=== PATIENT | female | born 1965 | race Two or more races ===

== ENCOUNTER 2023-05-11 09:42 | Emergency (ER) | payer OTHER ==
[~2023-05-11] VITALS: Ht 162.6 cm; Wt 72.0 kg
[2023-05-11 09:43] VITALS: TEMP 97.4
[2023-05-11] MEDS ORDERED: MIRA3350 PO (09:57)
[2023-05-11] MEDS ORDERED: BUSP5TA PO (09:58)
[2023-05-11 10:45] LABS: APPEARANCE, URINE HAZY (CLEAR); BACTERIA, URINE AUTO 1+ (NEGATIVE); BILIRUBIN, URINE AUTO NEGATIVE (NEGATIVE); BLOOD, URINE BLOOD NEGATIVE (NEGATIVE); COLOR, URINE YELLOW (YELLOW); GLUCOSE, URINE (UA) AUTO NEGATIVE (NEGATIVE); KETONE, URINE AUTO NEGATIVE (NEGATIVE); LEUKOCYTE ESTERASE, URINE AUTO 2+ (NEGATIVE); MUCUS, URINE SMALL (NEGATIVE); NITRITE, URINE AUTO NEGATIVE (NEGATIVE); PROTEIN, URINE AUTO NEGATIVE (NEGATIVE); RBC, URINE AUTO 9 /HPF (0-3); SQUAMOUS EPITHELIAL CELL UR AU 0 /HPF (0-6); UROBILINOGEN, URINE AUTO 0.2 mg/dL (0.0-2.0); WBC, URINE AUTO 94 /HPF (0-3)
[2023-05-11 11:39] LABS: BASO # 0.1 10^3/uL (0.0-0.2); EOS # 0.2 10^3/uL (0.0-0.5); EOS % 3.8 % (0.0-3.0); HEMATOCRIT 40.7 % (36.0-47.0); HEMOGLOBIN 13.6 g/dl (12.0-15.5); LYMPH # 2.7 10^3/uL (1.5-5.0); LYMPH % 44.6 % (24.0-44.0); MEAN CORPUSCULAR HEMOGLOBIN 31.5 pg (27.0-33.0); MEAN CORPUSCULAR HGB CONC 33.4 g/dl (32.0-36.5); MEAN CORPUSCULAR VOLUME 94.2 fl (80.0-96.0); MONO # 0.3 10^3/uL (0.0-0.8); MONO % 5.5 % (2.0-8.0); NEUTROPHILS # 2.7 10^3/uL (1.5-8.5); NEUTROPHILS % 44.8 % (36.0-66.0); PLATELET COUNT, AUTOMATED 229 10^3/uL (150-450); RED BLOOD COUNT 4.32 10^6/uL (4.00-5.40); WHITE BLOOD COUNT 6.1 10^3/uL (4.0-10.0)
[2023-05-11 12:02] LABS: LIPASE 29 U/L (12-53)
[2023-05-11 12:04] LABS: ALBUMIN 3.6 G/DL (3.2-5.2); ALKALINE PHOSPHATASE 101 U/L (46-116); ALT/SGPT 15 U/L (7.0-40); AST/SGOT 20 U/L (<34); BILIRUBIN,DIRECT < 0.1 MG/DL (<0.4); BILIRUBIN,TOTAL 0.3 MG/DL (0.3-1.2); TOTAL PROTEIN 7.3 G/DL (5.7-8.2)
[2023-05-11] MEDS ORDERED: ISOVUE-370 76% 100ML VIAL As Ordered ONE (12:09)
[2023-05-11 12:10] LABS: RSV AMPLIFICATION NEGATIVE (NEGATIVE)
[2023-05-11] MEDS ORDERED: ONDANSETRON 4MG 2ML VIAL IV ONE (12:10)
[2023-05-11] MEDS ORDERED: KETOROLAC 30 MG/ML 1ML VIAL IV ONE ×2 (12:10→13:30)
[2023-05-11] MEDS ORDERED: METR-265 PO (13:29)
[2023-05-11] MEDS ORDERED: CIPR-249 PO (13:29)
[2023-05-11 13:58] VITALS: BP 106/65; O2SAT 100
== END 2023-05-11 14:02 | disposition home or self-care (01) ==
LOC: M ED 09:42
DX: K57.33 Diverticulitis of large intestine without perforation or abscess with bleeding (principal); F41.9 Anxiety disorder, unspecified; F17.200 Nicotine dependence, unspecified, uncomplicated; Z79.899 Other long term (current) drug therapy
CPT/HCPCS: 74177; 80047; 80076; 81001; 83605; 83690; 85025; 87631; 96374; 96375; 96376; 99284; J1885; J2405; Q9967

== ENCOUNTER → 2023-09-03 | Outpatient (REF) | payer OTHER ==
[~2023-09-03] MED LIST: BUSP5TA PO; CIPR-249 PO; METR-265 PO; MIRA3350 PO
[2023-09-03 14:19] LABS: BASO # 0.1 10^3/uL (0.0-0.2); EOS # 0.4 10^3/uL (0.0-0.5); EOS % 5.9 % (0.0-3.0); HEMATOCRIT 39.6 % (42.0-52.0); HEMOGLOBIN 12.9 g/dl (13.5-17.5); LYMPH # 2.4 10^3/uL (1.5-5.0); LYMPH % 34.1 % (24.0-44.0); MEAN CORPUSCULAR HGB CONC 32.6 g/dl (32.0-36.5); MEAN CORPUSCULAR VOLUME 98.3 fl (80.0-96.0); MONO # 0.4 10^3/uL (0.0-0.8); MONO % 5.5 % (2.0-8.0); NEUTROPHILS # 3.7 10^3/uL (1.5-8.5); NEUTROPHILS % 52.9 % (36.0-66.0); PLATELET COUNT, AUTOMATED 207 10^3/uL (150-450); RED BLOOD COUNT 4.03 10^6/uL (4.30-6.10); WHITE BLOOD COUNT 7.1 10^3/uL (4.0-10.0)
[2023-09-03 14:31] LABS: ERYTHROCYTE SEDIMENTATION RATE 25 mm/hr (0-20)
[2023-09-03 14:52] LABS: ALBUMIN 3.6 G/DL (3.2-5.2); ALKALINE PHOSPHATASE 104 U/L (46-116); ALT/SGPT 20 U/L (7.0-40); AST/SGOT 13 U/L (<34); BILIRUBIN,TOTAL 0.3 MG/DL (0.3-1.2); BLOOD UREA NITROGEN 13 MG/DL (9-23); CARBON DIOXIDE LEVEL 27 MMOL/L (20-31); CHLORIDE LEVEL 109 MMOL/L (98-107); CHOLESTEROL LEVEL 310 MG/DL (<200); CHOLESTEROL RISK RATIO 6.15 (<5); CREATININE FOR GFR 0.56 MG/DL (0.70-1.30); GLOMERULAR FILTRATION RATE > 60.0 (>56); GLUCOSE, FASTING 89 MG/DL (60-100); HDL CHOLESTEROL 50.4 MG/DL (>40); LDL CHOLESTEROL 229.4 MG/DL (<100); MAGNESIUM LEVEL 1.9 MG/DL (1.8-2.4); NON-HDL-C 259.6 MG/DL; POTASSIUM SERUM 4.7 MMOL/L (3.5-5.1); SODIUM LEVEL 141 MMOL/L (136-145); TOTAL PROTEIN 6.9 G/DL (5.7-8.2); TRIGLYCERIDES LEVEL 151 MG/DL (<150)
[2023-09-03 14:53] LABS: RHEUMATOID FACTOR QUANT < 3.5 IU/ML (<14)
[2023-09-03 14:55] LABS: THYROID STIMULATING HORMONE 0.945 uIU/ML (0.55-4.78); TOTAL 25(OH) VITAMIN D 13.1 NG/ML (20.0-100.0)
[2023-09-03 15:19] LABS: HEMOGLOBIN A1c 5.3 % (4.0-6.0)
== END ==
LOC: M LAB REF 12:55
PROVIDERS: ATTEND Nurse Practitioner Family
DX: M12.9 Arthropathy, unspecified (principal)

== ENCOUNTER → 2023-11-19 | Outpatient (CLI) | payer OTHER ==
[~2023-11-19] MED LIST changes: +ISOVUE-370 76% 100ML VIAL ONE
== END ==
LOC: EDSEX 11-05 12:30 → M PLAIMG 12:51
PROVIDERS: ATTEND Nurse Practitioner Family
DX: K13.70 Unspecified lesions of oral mucosa (principal)
CPT/HCPCS: 70491; Q9967

== ENCOUNTER → 2024-01-21 | Outpatient (CLI) | payer OTHER ==
[~2024-01-21] MED LIST changes: -ISOVUE-370 76% 100ML VIAL ONE
== END ==
LOC: M PLAIMG 09:03
PROVIDERS: ATTEND Nurse Practitioner Family
DX: M25.561 Pain in right knee (principal)

== ENCOUNTER → 2024-10-11 | Outpatient (REF) | payer OTHER | LOC: M LAB REF 12:04 | PROVIDERS: ATTEND Nurse Practitioner Family | DX: J11.1 Influenza due to unidentified influenza virus with other respiratory manifestations (principal) ==

== ENCOUNTER 2025-01-23 17:59 | Emergency (ER) | payer OTHER ==
[~2025-01-23] VITALS: Ht 162.6 cm; Wt 66.8 kg
[2025-01-23] MEDS ORDERED: PERM5CRE9 TOP (19:09)
[2025-01-23] MEDS ORDERED: CEPH500C PO (19:09)
[2025-01-23] MEDS ORDERED: CETI-24 PO (19:10)
[2025-01-23 19:14] VITALS: BP 165/89; TEMP 98.4; O2SAT 99
== END 2025-01-23 19:17 | disposition home or self-care (01) ==
LOC: M ED 17:59
DX: L03.113 Cellulitis of right upper limb (principal); L03.114 Cellulitis of left upper limb; L03.115 Cellulitis of right lower limb; L03.116 Cellulitis of left lower limb; W57.XXXA Bitten or stung by nonvenomous insect and other nonvenomous arthropods, initial encounter; F12.10 Cannabis abuse, uncomplicated